=== PATIENT | male | born 2000 | race Caucasian/White ===

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

== ENCOUNTER 2021-08-08 19:22 | Emergency (ER) | payer OTHER, SELFPAY ==
--- NOTE | 2021-08-08 19:27 | ED.WOUNDLAC ---
HPI - Wound/Laceration General Chief Complaint: Wound/Laceration Stated Complaint: lac on head Time Seen by Provider: 08/08/21 19:27 Source: patient and RN notes reviewed History of Present Illness HPI narrative: Patient is a 20-year-old male who presents the urgent care with complaints of a laceration to the head. Patient states that he is helping his [id number] to rehab a house and hit his head on the corner of a ceiling fan. Patient states a fan was not moving and was actually a broken light fixture. Patient states he has had a slight headache since then. States that it started bleeding after the shower and he wanted to make sure it was not deep enough for sutures . Patient denies of any loss of consciousness or vision changes. No other acute complaints. No acute distress noted. Patient aware of the plan of care. Some parts of this dictation were generated by voice recognition software and may contain typographical and/or grammatical inaccuracies. Related Data Home Medications Medication Instructions Recorded Confirmed fluoxetine 10 mg PO DAILY 08/08/21 08/08/21 Allergies Allergy/AdvReac Type Severity Reaction Status Date / Time amoxicillin Allergy Intermediate Rash Verified 08/08/21 19:33 Penicillins Allergy Mild Rash Verified 08/08/21 19:33 STEROIDS Allergy Intermediate MIGRAINE Uncoded 08/08/21 19:33 HEADACHE, FACIAL AND EYE SWELLING POISON DAVID Allergy Mild RASH Uncoded 08/08/21 19:33 Review of Systems Review of Systems: CONSTITUTIONAL: Denies fever, chills, or sweats. EYES: Denies visual changes, redness, or discharge. ENT: Denies rhinorrhea, congestion, sore throat, or otalgia. CARDIOVASCULAR: Denies chest pain, palpitations, or edema. RESPIRATORY: Denies cough or dyspnea. GASTROINTESTINAL: Denies abdominal pain, nausea, vomiting, or diarrhea. GENITOURINARY: Denies dysuria or hematuria. SKIN: Reports of a laceration to the head MUSCULOSKELETAL: Denies back pain, joint pain, or myalgia. NEUROLOGIC: Denies headache, numbness, or weakness. All other systems reviewed are negative, except as documented in HPI. PMFSH Comments At the time of my signature, I reviewed and agree with the nursing past medical, surgical, social, and family history. There is no relevant family history pertinent to the patient complaint. Exam Narrative: GENERAL: This is a well-nourished, well-developed patient, in no apparent distress. HEAD: normocephalic, atraumatic. EYES: PERRL. Sclera clear/white. Vision is grossly intact. EARS: External ears normal NOSE: External nose normal with no obvious nasal discharge, nares without redness, no rhinorrhea. THROAT: Mucous membranes moist NECK: Neck supple CARDIOVASCULAR: Regular rate and rhythm without murmurs, gallops, or rubs. RESPIRATORY: Clear to auscultation. Breath sounds equal bilaterally. No wheezes, rales, or rhonchi. SKIN: 1.5 cm superficial linear laceration to the top left scalp. Warm, intact with no suspicious lesions or rash, good texture and turgor. NEURO: awake, alert, and oriented to person, place and time. There were no obvious focal neurologic abnormalities. EXTREMITIES: No clubbing, cyanosis, or edema. Course Vital Signs Vital signs: Vital Signs Temperature 99 F 08/08/21 19:29 Pulse Rate 81 08/08/21 19:29 Respiratory Rate 16 08/08/21 19:29 Blood Pressure 148/69 H 08/08/21 19:29 Pulse Oximetry 100 08/08/21 19:29 Temperature 99 F 08/08/21 19:29 Pulse Rate 81 08/08/21 19:29 Respiratory Rate 16 08/08/21 19:29 Blood Pressure 148/69 H 08/08/21 19:29 Pulse Oximetry 100 08/08/21 19:29 Reviewed-patient is informed that they may have pre-hypertension or hypertension based on a blood pressure reading in the department. I recommend the patient call the primary care provider listed on their discharge instructions or a physician of their choice this week to arrange follow-up for further evaluation of possible pre-hypert
[2021-08-08 19:29] VITALS: BP 148/69; PULSE 81; RESP 16; TEMP 37.2; O2SAT 100
== END 2021-08-08 19:37 | disposition home or self-care (01) ==
PROVIDERS: Emergency Provider Nurse Practitioner Family; PCP Physician Assistant
DX: S01.01XA Laceration without foreign body of scalp, initial encounter (principal); W22.8XXA Striking against or struck by other objects, initial encounter; F32.9 Major depressive disorder, single episode, unspecified
CPT/HCPCS: 99212; G0463

== ENCOUNTER 2022-04-04 18:30 | Emergency (ER) | payer BC, SELFPAY ==
--- NOTE | 2022-04-04 18:37 | ED.URI ---
HPI - URI/Sore Throat General Chief Complaint: Upper Respiratory Infection Stated Complaint: headache sore throat congestion Time Seen by Provider: 04/04/22 18:42 Source: patient Mode of arrival: ambulatory Limitations: no limitations History of Present Illness HPI Narrative: Rudy is a 21-year-old male patient presenting to the clinic today with complaints of headache, sore throat, and chest congestion x2 days. He denies any known exposure to anyone with COVID, flu, or strep. He reports that he does not want flu or COVID testing in the clinic today. He is agreeable to have a strep test completed. He denies any fever or chills. He denies any cough. Does have a runny nose. MD elicited complaint: sore throat, nasal congestion and other (Headache) Related Data Home Medications Medication Instructions Recorded Confirmed fluoxetine 10 mg PO DAILY 08/08/21 08/08/21 Allergies Allergy/AdvReac Type Severity Reaction Status Date / Time amoxicillin Allergy Intermediate Rash Verified 08/08/21 19:33 Penicillins Allergy Mild Rash Verified 08/08/21 19:33 STEROIDS Allergy Intermediate MIGRAINE Uncoded 08/08/21 19:33 HEADACHE, FACIAL AND EYE SWELLING POISON DAVID Allergy Mild RASH Uncoded 08/08/21 19:33 Review of Systems Review of Systems: Pertinent positives per HPI. Patient denies any fever, chills, rash, visual changes, dizziness, cough, shortness of breath, chest pain, palpitations, nausea, vomiting, diarrhea, constipation, abdominal pain, or any urinary issues. PMFSH Comments At the time of my signature, I reviewed and agree with the nursing past medical, surgical, social, and family history. There is no relevant family history pertinent to the patient complaint. Exam Narrative: General: Well-developed, well nourished, in no apparent distress Head: Normocephalic, atraumatic Eyes: Pupils equally round and reactive to light bilaterally, EOM intact, sclera and conjunctive clear, no discharge, lids normal Ears: TMs intact and dull, ear canals clear, no drainage, grossly hearing normal. Nose: Nares patent, clear nasal discharge, no inflammation, no sinus tenderness. Mouth: Oral pharynx without lesions or masses, good dentition, MMM. Postnasal drip Neck: Supple, trachea midline, no enlargement of anterior or posterior cervical nodes, no thyroid masses or goiter palpable. Cardio: Regular rate and rhythm, s1 and s2 normal, no murmur appreciated. Resp: Clear to auscultation bilaterally, no rhonchi, rales, wheezing or rubs Course Course Emergency Course: Portions of this record may have been created with voice recognition software. Level of Care: Express Care Visit Vital Signs Vital signs: Vital Signs Temperature 37.1 C 04/04/22 18:40 Pulse Rate 61 04/04/22 18:40 Respiratory Rate 20 04/04/22 18:40 Blood Pressure 114/62 04/04/22 18:40 Pulse Oximetry 100 04/04/22 18:40 Temperature 37.1 C 04/04/22 18:40 Pulse Rate 61 04/04/22 18:40 Respiratory Rate 20 04/04/22 18:40 Blood Pressure 114/62 04/04/22 18:40 Pulse Oximetry 100 04/04/22 18:40 Vital signs reviewed MDM - URI/Sore Throat MDM Narrative Medical decision making narrative: At the time of visit patient is resting comfortably on the exam table. Strep testing completed was negative in the clinic. Patient declined COVID testing and influenza testing at this time. I suspect that the patient has viral pharyngitis and we will send the strep screen for culture. Supportive measures were discussed with the patient he voiced understanding of discharge instructions and agrees to treatment plan. Differential Diagnosis Differential diagnosis: Likely upper respiratory infection, croup, otitis media, sinusitis, viral infection, bronchitis, influenza and pharyngitis Lab Data Labs: Strep Screen Presumptive Negative *(Reference Range: Negative)* Discharge Plan Discharge
[2022-04-04 18:40] VITALS: BP 114/62; PULSE 61; RESP 20; TEMP 37.1; O2SAT 100
== END 2022-04-04 19:00 | disposition home or self-care (01) ==
PROVIDERS: Emergency Provider Nurse Practitioner Family
DX: J02.9 Acute pharyngitis, unspecified (principal)
CPT/HCPCS: 87081; 87880; 99213; G0463

== ENCOUNTER 2023-02-18 13:48 | Emergency (ER) | payer SELFPAY ==
[2023-02-18 13:56] VITALS: BP 119/75; PULSE 83; RESP 14; TEMP 37.8; O2SAT 98
--- NOTE | 2023-02-18 14:17 | ED.URI ---
HPI - URI/Sore Throat General Chief Complaint: Upper Respiratory Infection Stated Complaint: cough / cold / fever Time Seen by Provider: 02/18/23 14:15 Source: patient, RN notes reviewed and old records reviewed Mode of arrival: ambulatory Limitations: no limitations History of Present Illness HPI Narrative: 22-year-old male accompanied by significant other presents with complaints of cough for 3 days history with fevers up [id number], complaints of some stuffy nose also sore throat. Patient reports he has not taken any medication for his symptoms. Patient reports past history of ear infections and has had his tonsils removed. Patient reports no known ill contacts. MD elicited complaint: cough and sore throat Pertinent past history: other (Ear infections, strep throat) Onset (ago): day(s) (3) Pain scale (0-10): 2 Treatments prior to arrival: none Related Data Allergies Allergy/AdvReac Type Severity Reaction Status Date / Time amoxicillin Allergy Intermediate Rash Verified 08/08/21 19:33 Penicillins Allergy Mild Rash Verified 08/08/21 19:33 STEROIDS Allergy Intermediate MIGRAINE Uncoded 08/08/21 19:33 HEADACHE, FACIAL AND EYE SWELLING POISON DAVID Allergy Mild RASH Uncoded 08/08/21 19:33 Review of Systems Review of Systems: CONSTITUTIONAL: Reports malaise, chills, sweats, or fever. EYES: Denies visual changes, redness, or discharge. ENT: Reports rhinorrhea, congestion,no sinus pain, no otalgia positive for sore throat. CARDIOVASCULAR: Denies chest pain, palpitations, or edema. RESPIRATORY: Reports cough.? Denies dyspnea. GASTROINTESTINAL: Denies abdominal pain, nausea, vomiting, diarrhea SKIN: Denies rash or itching. MUSCULOSKELETAL: Denies myalgia. NEUROLOGIC: Denies headache. All systems reviewed & are unremarkable except as noted in HPI and below PMFSH Past Medical History Medical History (Updated 02/20/23 @ 07:54 by Sasha Orellana NP) Anxiety and depression Eczema Fracture of right hand Surgical History Surgical History (Updated 02/20/23 @ 07:50 by Sasha Orellana NP) History of tonsillectomy and adenoidectomy Social History Social History (Updated 02/20/23 @ 07:50 by Sasha Orellana NP) Smoking status: Current every day smoker Tobacco type: e-cigarettes/vaping Alcohol intake: current Alcohol use details: social Substance use type: does not use Living arrangements: with family Gender identity (if verbalized by the patient): Male Comments At time of signature, agree with nursing past medical, surgical, social and family history. There is no relevant family history pertinent to the presenting complaint Exam Narrative: GENERAL: Well-appearing, well-nourished, and in no acute distress. HEAD: Normocephalic EYES: PERRLA, conjunctivae clear ENT: Nares clear, turbinates edematous and erythematous, clear discharge. Mucous membranes moist. TM pearly arreola with dull light reflex bilaterally; no tragal tenderness. Oropharynx erythematous without lesions. Tonsils not present and throat without exudate, no drooling, no hoarseness, no trismus, uvula midline.post nasal drainage. NECK: Supple. No lymphadenopathy CHEST: Clear to auscultation, breath sounds equal. No wheezing, rhonchi, rales, or stridor. No respiratory distress, speaks in full sentences.cough SAO2 98% on room air HEART: Regular rate and rhythm. No murmur heard. SKIN: Warm, dry, no rash. NEURO: Alert and oriented x3. PSYCH: Normal mood and affect Course Course Emergency Course: Patient is aware of diagnosis, understands and agrees to treatment plan.? Anticipatory guidance given.? Patient agrees to follow-up as directed and is aware of reasons to seek care at the emergency department. Portions of this record may have been created with voice recognition software Level of Care: Express Care Visit Vital Signs Vital signs: Vital Signs Temperature 37.8 C H 02/18/23 13:56 Pulse R
--- NOTE | 2023-02-18 14:31 | ED.URI ---
HPI - URI/Sore Throat General Chief Complaint: Upper Respiratory Infection Stated Complaint: cough / cold / fever Time Seen by Provider: 02/18/23 14:15 Source: patient, RN notes reviewed and old records reviewed Mode of arrival: ambulatory Limitations: no limitations History of Present Illness HPI Narrative: 3 day of cough 102 fever, history of ear infections no meds taken MD elicited complaint: fever, cough, rhinorrhea and nasal congestion Related Data Allergies Allergy/AdvReac Type Severity Reaction Status Date / Time amoxicillin Allergy Intermediate Rash Verified 08/08/21 19:33 Penicillins Allergy Mild Rash Verified 08/08/21 19:33 STEROIDS Allergy Intermediate MIGRAINE Uncoded 08/08/21 19:33 HEADACHE, FACIAL AND EYE SWELLING POISON DAVID Allergy Mild RASH Uncoded 08/08/21 19:33 Course Vital Signs Vital signs: Vital Signs Temperature 37.8 C H 02/18/23 13:56 Pulse Rate 83 02/18/23 13:56 Respiratory Rate 14 02/18/23 13:56 Blood Pressure 119/75 02/18/23 13:56 Pulse Oximetry 98 02/18/23 13:56 Oxygen Delivery Room Air 02/18/23 13:56 Temperature 37.8 C H 02/18/23 13:56 Pulse Rate 83 02/18/23 13:56 Respiratory Rate 14 02/18/23 13:56 Blood Pressure 119/75 02/18/23 13:56 Pulse Oximetry 98 02/18/23 13:56 Oxygen Delivery Room Air 02/18/23 13:56 Discharge Plan Discharge Follow-up/Referrals: Delroy Keyes MD [Primary Care Provider] -
== END 2023-02-18 14:45 | disposition home or self-care (01) ==
PROVIDERS: Emergency Provider Registered Nurse; PCP Emergency Medicine
DX: J06.9 Acute upper respiratory infection, unspecified (principal); R05.9 Cough, unspecified; F17.290 Nicotine dependence, other tobacco product, uncomplicated
CPT/HCPCS: 87081; 87880; 99213; G0463

== ENCOUNTER 2025-07-13 08:13 | Emergency (ER) | payer OTHER, SELFPAY ==
--- OUTSIDE RECORDS SUMMARY | 2025-07-13 08:16 | XMS_ITS | Clinical Summary ---
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 90 Capsule 1 07/26/2021 Active naproxen (NAPROSYN) 500 MG Tablet Take 1 Tablet by mouth 2 times daily as needed for Moderate or more severe pain. 20 Tablet 08/14/2024 Active Active Problems Problem Noted Date Diagnosed Date Depression 06/14/2021 Immunizations Immunization Administration Dates Next Due [id number] selena MCV4, Unspecif ied Formulation 10/20/2012 DTAP VACCINE 06/11/2006, 3,04/19/2002,01/11,2001 Hepatitis A Vaccine, Pediatric/adolescent, 2 Dose Schedule 06/11/2006,10/01/2005 Hepatitis B Vaccine, Pediatric/adolescent 07/20/2002,2001,2001 Hib Vaccine,unspecified Formulation 04/18,04/19/2002,01/11/2002,11/26 Inactivated Polio Vaccine 06/11/2006,,01/11/2002,11/26 Influenza Vaccine,unspecifie d Formulation 09/21/2004 MMR Vaccine 06/03/2007,10/29/2002 Meningococcal MCV4O 02/05/2018 Pneumococcal Vaccine Peds - 7 Valent 05/11/2003, 05/11/2003 TDAP Vaccine 11/07/2018(Deferred: - had as school requirement),10/20/2012 Varicella Vaccine Live 06/03/2007,05/11/2003 Family History Medical History Relation Name Comments No Known Problems Father No Known Problems Mother Relation Name Status Comments Father Alive Mother Alive Social History Tobacco Use Types Packs/Day Years Used Date Smoking Tobacco: Every Day Cigarettes 0.3 6.1 Started: 06/14/2019 Smokeless Tobacco: Never Tobacco Cessation:Ready to Q uit: No; Counseling Given: Yes Alcohol Use Standard Drinks/Week Comments Not Currently 0 (1 standard drink = 0.6 oz pur e alcohol) PHQ-2 Answer Date Recorded Total Score - Questions 1-9 0 07/2021 Sexually Active Control Partners Comments Yes Male Condom Female Sex and Gender Information Value Date Recorded Sex Assigned at Not on file Legal Sex Male 11:33 PM CDT Gender Identity Not on file Sexual Orientation Not on file Last Filed Vital Signs Vital Sign Reading Time Taken Comments Blood Pressure 148/87 08/14/2024 10:02 PM CDT Pulse 100 08/14/2024 10:02 PM CDT Temperature 37.4 C (99.4 F) 08/14/2024 7:54 PM CDT Respiratory Rate 18 08/14/2024 10:02 PM CDT Oxygen Saturation 99% 08/14/2024 10:02 PM CDT Inhaled Oxygen Concentration - - Weight 88.5 kg (195 lb) 08/14/2024 7:54 PM CDT Height 190.5 cm (6' 3) 08/14/2024 7:54 PM CDT Body Mass Index 24.37 08/14/2024 7:54 PM CDT Plan of Treatment Health Maintenance Due Date Last Done Comments Hepatitis C Virus (HCV) Screening 2001 Human Papillomavirus (HPV) Immunization (1 - Male 3-dose series) 2016 Meningococcal B Immunization (1 of 2 - Standard) 2017 Pneumococcal Immunization Combined (1 of 2 - PCV) 2020 05/11/2003, 05/11/2003 DTaP/Tdap/Td Immunization (7 - Td or Tdap) 10/20/2022 10/20/2012, 06/11/2006, 05/11/2003, Additional history exists SARS-COV-2 Immunization (2023- season) 2024 Influenza Immunization (#1) 2025 09/21/2004 Respiratory Syncytial Virus (RSV) Immunization (Adult) (1 - 1-dose 75+ series) 2076 Hepatitis B Immunization Completed 002, 2001, 2001 Hepatitis A Immunization Discontinued 06/11/2006, 09/17 Polio (IPV) Immunization Discontinued 006, 10/29/2002, 01/11/2002, Additional history exists Measles Mumps Rubella (MMR) Immunization Discontinued 06/03/2007, 10/29/2002 Varicella Immunization Discontinued 06/03/2007, 2002 Meningococcal Immunization (ACWY) Completed 02/05/2018, 10/20/2012 Rotavirus Immunization Aged Out No lo nger eligible based on patient's age to complete this topic Insurance [address] [address] [facility] [place] L [facility]
--- OUTSIDE RECORDS SUMMARY | 2025-07-13 08:16 | XMS_ITS | Clinical Summary ---
Author Organization [facility] Address [address] [place] [address] Care Team Providers Care Castables Worker Name Role Phone Fer Natalia GONZALES Primary Care Provider [phone] Allergies Active Allergy Reactions Criticality Noted Date Comments Cefdinir Unknown 07/30/2024 Penicillins Rash Medium 08/11/2015 Prednisone Headache,Other (See comments) Low 2018 migraines Medications azithromycin (ZITHROMAX) 250 mg tablet Take 2 tablets the first day, then 1 tablet daily for 4 days 6 tablet 4 Active Additional Information Patient not taking.Reported on 03/22/2025 Active Problems Problem Noted Date Diagnosed Date Depression 06/14/2021 Assessment & Plan (07/26/2024 5:14 PM CDT): Stable, well controlled Not currently on medication Generalized abdominal pain 10/06/2020 Assessment & Plan (07/26/2024 5:12 PM CDT): Couple weeks of intermittent pain when eating Labs ordered Discussed potential imaging or referral to GI as needed Resolved Problems Problem Noted Date Diagnosed Date Resolved Date Jaundice 07/26/2024 07/26/2024 Migraine 07/26/2024 07/26/2024 Hyperbilirubinemia 10/06/2020 Diarrhea of presumed infectious origin 10/06/2020 07/26/2024 Immunizations Immunization Administration Dates Next Due DTaP 06/11/2006, 3,04/19/2002,01/11/2002 ,2001 Hep A, Pediatric 06/11/2006,10/01/2005 Hep B, Adolescent or Pediatric 07/20/2002,2000,2001 HiB 05/11/2003,04/19/2002,01/11/2002 ,2001 IPV 06/11/2006,10/29/2002,01/11/2002 ,2001 Influenza, Unspecified 07/21/2024(Deferr ed: Patient Refused),08/17/2023(Deferred: Patient Refused),09/21/2004 MMR 06/03/2007,10/29/2002 Meningococcal Conjugate (Menveo) 02/05/2018 Meningococcal MCV4, Unspecified 10/20/2012 Pneumococcal Conjugate 7-Valent 05/11/2003 Tdap 10/20/2012 Varicella 06/03/2007,05/11/2003 Surgical History Surgery Date Site/Laterality Comments TONSILLECTOMY Tonsillectomy Medical History Medical History Date Comments Depression 06/14/2021 Migraine 07/26/2024 Social History Tobacco Use Types Packs/Day Years Used Date Smoking Tobacco: Former Cigarettes Smokeless Tobacco: Former Tobacco Cessation:Counseling Given: Not Answered Comments:vape Alcohol Use Standard Drinks/Week Comments Not Currently 0 (1 standard drink = 0.6 oz pur e alcohol) AUDIT-C Answer Date Recorded Q1: How often do you have a drink containing alc ohol? 2-3 times a week 07/26/2024 Q2: How many drinks containi ng alcohol do you have on a typical day when you are drinking? 3 or 4 07/26/2024 Q3: How often do you have si x or more drinks on one occasion? Less than monthly 07/26/2024 PHQ-2 Answer Date Recorded PHQ-2 Total Score (If total score is 3 or more points, staff should administer the PHQ-9) 0 07/26/2024 Personal Safety Answer Date Recorded Have you ever been in or are you currently in a harmful physical or emotional relationship or is someone making you feel afraid or unsafe? 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 Gender Identity Not on file Sexual Orientation Not on file Obstetrics History Last Filed Vital Signs Vital Sign Reading Time Taken Comments Blood Pressure 120/70 03/22/2025 11:10 AM CDT Pulse 84 03/22/2025 11:10 AM CDT Temperature 36.6 C (97.8 F) 03/22/2025 11:10 AM CDT Respiratory Rate 18 03/22/2025 11:10 AM CDT Oxygen Saturation 98% 03/22/2025 11:10 AM CDT Inhaled Oxygen Concentration - - Weight 86.2 kg (190 lb) 03/22/2025 11:10 AM CDT Height 190.5 cm (6' 3) 03/22/2025 11:10 AM CDT Body Mass Index 23.75 03/22/2025 11:10 AM CDT Plan of Treatment Health Maintenance Due Date Last Done Comments HPV Vaccines (1 - Male 3-dose series) 2016 Meningococcal B Vaccine (1 of 2 - Standard) 2017 Regular Well Visit/Exam 18-64 2019 DTaP/Tdap/Td Vaccine (7 - Td or Tdap) 10/20/2022 10/20/2012, 06/11/2006, 05/11/2003, Additional history exists Influenza Vaccine (#1) 2025 09/21/2004 Depression Screening 07/26/2025 07/26/2024 Hepatitis B Screening Completed 07/20/2002 , 2001, 2001 Pneumococcal vaccine <65 Aged Out 05/11/2003 No longer eligible based on patient's age to complete this topic Varicella Vaccines Completed 06/03/2007, 05/11/2003 Hepatitis C Screening Completed 10/06/2020, 020 Procedures Procedure Name Priority Date/Time Associated Diagnosis Comments HEPATITIS PANEL, ACUTE Routine 10/06/2020 6:41 AM EMBOSSING MACHINE TENDER from Last 3 Months or Most Recently Relevant to Health Maintenance Results * Hepatitis panel, acute (10/06/2020 6:41 AM EMBOSSING MACHINE TENDER) Hep A IgM Nonreactive Nonreactive ANKITA LORENZANA ([place]) Comment: Interpretive Data: If Hep A IgM Ab is reported as Equivocal, a new sample should be drawn in two weeks for testing. Current interpretive data was last revised on 20. Testing performed by: [facility], [address] [place] [address], [place]., [address] Hep B core IgM Nonreactive Nonreactive C LESTER LORENZANA ([place]) Comment: Interpretive Data If HepB Core IgM Ab is reported as Equivocal, a new sample should be drawn in two weeks for testing. Current interpretive data was last revised on 20. Testing performed by: [facility], [address] [place] [address]., [id number] Hep C Ab Nonreactive Nonreactive ANKITA LORENZANA ([place]) Comment: Interpretive Data Nonreactive: Antibodies to HCV not detected. Does NOT exclude the possibility of recent exposure to HCV. Equivocal: Equivocal for HCV antibodies. Supplemental molecular testing will be automatically performed to determine infection status in accordance with current CDC screening recommendations. Reactive: Positive for HCV antibodies. This may represent current or past HCV infection. Supplemental molecular testing will be automatically performed to determine current infection status in accordance with current CDC screening recommendations. Interpretive data was last revised on 2020. Testing performed by: [facility], [address] [place] [address]., [id number] HepBsAg Nonreactive Nonreactive ANKITA LORENZANA ([place]) Comment:Testing performed by : [facility], [address] [place] [address]., [id number] Blood specimen (specimen) 10/06/2020 6:41 AM EMBOSSING MACHINE TENDER 10/06/2020 12:22 PM EMBOSSING MACHINE TENDER Issac Altamirano MD LAB MICROBIOLOGY - GENERAL OR DERABLES Final Result ANKITA LORENZANA ([place]) 1 [facility] Department [place] [address] from Last 3 Months or Most Recently Relevant to Health Maintenance Insurance [facility] [address] [place] [address] ANTH ACCESS CHOICE Member Subscriber Plan / Payer (Ef fective 2024-Present) Name:Rudy Chow Relation to Subscriber:Self Name:Rudy Chow Payer ID:[id number] (NAIC) Type:[facility] Address: [address] [facility] [place] [address] WORKERS COMPENSATION GENERIC Advance Directives For more information, please contact: [phone] * Full Code (Latest Code Status on File) Date Activated Date Inactivated Comments 10/06/2020 3:04 AM 10/06/2020 6:57 PM * Full Code Date Activated Date Inactivated Comments 10/06/2020 1:52 AM 10/06/2020 3:04 AM Care Teams Castables Worker Relationship Specialty Start Date End Date Natalia Monroe NP [address] [facility] [address] PCP - General Family Medicine 07/26/24
[2025-07-13 08:20] VITALS: BP 131/73; PULSE 65; RESP 16; TEMP 36.8; O2SAT 98
--- NOTE | 2025-07-13 08:47 | ED_ITS ---
HPI - URI/Sore Throat General Chief Complaint: Upper Respiratory Infection Stated Complaint: congestion/drainage Time Seen by Provider: 07/13/25 08:47 Source: patient Mode of arrival: ambulatory Limitations: no limitations History of Present Illness HPI Narrative: 24-year-old male presents with complaint runny nose, congestion, sore throat and cough starting yesterday. Afebrile. Not taking any [id number] medications to treat symptoms. Denies nausea vomiting diarrhea. All Systems reviewed and negative except as noted. Related Data Allergies Allergy/AdvReac Type Severity Reaction Status Date / Time amoxicillin Allergy Intermediate Rash Verified 08/08/21 19:33 Penicillins Allergy Mild Rash Verified 08/08/21 19:33 STEROIDS Allergy Intermediate MIGRAINE Uncoded 08/08/21 19:33 HEADACHE, FACIAL AND EYE SWELLING POISON DAVID Allergy Mild RASH Uncoded 08/08/21 19:33 [facility] Past Medical History Medical History (Updated 07/13/25 @ 08:49 by Katherine Townsend NP) Eczema Fracture of right hand Anxiety and depression Surgical History Surgical History (Updated 02/20/23 @ 07:50 by Sasha Orellana NP) History of tonsillectomy and adenoidectomy Social History Social History (Updated 02/20/23 @ 07:50 by Sasha Orellana NP) Smoking status: Current every day smoker Tobacco type: e-cigarettes/vaping Alcohol intake: current Alcohol use details: social Substance use type: does not use Living arrangements: with family Gender identity (if verbalized by the patient): Male Comments At time of signature, agree with nursing past medical, surgical, social and family history. There is no relevant family history pertinent to the presenting complaint. Exam Narrative: GENERAL: This is a well-nourished, well-developed patient, Ill-appearing but no acute distress HEAD: normocephalic, atraumatic. EYES: PERRL. Sclera clear/white. Vision is grossly intact. EARS: External ears normal, auditory canals clear and without drainage, TMs normal without perforation. Hearing grossly intact. NOSE: External nose normal with Mild congestion, clear nasal drainage. THROAT: Mucous membranes moist, Erythematous with mild swelling. No exudates. NECK: Neck supple, non-tender without lymphadenopathy, masses or thyromegaly. CARDIOVASCULAR: Regular rate and rhythm without murmurs, gallops, or rubs. RESPIRATORY: Clear to auscultation. Breath sounds equal bilaterally. No wheezes, rales, or rhonchi. SKIN: warm, Dry, intact with no suspicious lesions or rash, good texture and turgor. NEURO: awake, alert, and oriented to person, place and time. There were no obvious focal neurologic abnormalities. EXTREMITIES: No joint tenderness, effusion, or edema noted. Course Course Level of Care: Express Care Visit Vital Signs Vital signs: Vital Signs Temperature 36.8 C 07/13/25 08:20 Pulse Rate 65 07/13/25 08:20 Respiratory Rate 16 07/13/25 08:20 Blood Pressure 131/73 07/13/25 08:20 Pulse Oximetry 98 07/13/25 08:20 Oxygen Delivery Room Air 07/13/25 08:20 Temperature 36.8 C 07/13/25 08:20 Pulse Rate 65 07/13/25 08:20 Respiratory Rate 16 07/13/25 08:20 Blood Pressure 131/73 07/13/25 08:20 Pulse Oximetry 98 07/13/25 08:20 Oxygen Delivery Room Air 07/13/25 08:20 reviewed MDM - URI/Sore Throat MDM Narrative Medical decision making narrative: negative COVID, influenza and strep. Strep culture pending. Recommend over -the-counter medications to treat viral symptoms. Lungs clear to auscultation. Patient is alert, nontoxic. Differential Diagnosis Differential diagnosis: Likely upper respiratory infection, sinusitis, viral infection, influenza and pharyngitis Lab Data Labs: Lab Results 07/13/25 Range/Units 08:47 POC Influenza A Ag Negative (Negative) POC Influenza B Ag Negative (Negative) POC SARS CoV-2 Ag Negative (Negative) POC Grp A Strep Screen Negative (Negative) Discharge Plan Discharge Clinical Impression: Acute viral sinusitis Patient Disposition: Home Condition: Stable Instructions: Sinusitis (ED) Additional Instructions: your COVID, influenza and strep test were negative today. Your symptoms are viral and may last 10-14 days. Purchase an sirh-scz-cbzqmbf nasal spray to treat her symptoms such as Flonase or Nasacort. Take as directed on packaging. Purchase an [id number]-[id number] decongestant such as pseudoephedrine. Take as directed on packaging. This medication is found by the pharmacist. Drink at least 64 oz of water a day. See your doctor symptoms are not improving. Patient Language: Sinhala Follow-up/Referrals: UNKNOWN,DOCTOR [Primary Care Provider] Stand Alone Forms: Work/School Release IP Time of Disposition: 08:49
[2025-07-13 08:51] LABS: EDCOVIDSCREEN Negative (Negative); EDINFLUASCREEN Negative (Negative); EDINFLUBSCREEN Negative (Negative); EDSTREPNEGPOS1 Negative (Negative)
== END 2025-07-13 08:55 | disposition home or self-care (01) ==
PROVIDERS: Emergency Provider Nurse Practitioner Family
DX: J01.90 Acute sinusitis, unspecified (principal); B97.89 Other viral agents as the cause of diseases classified elsewhere; F17.290 Nicotine dependence, other tobacco product, uncomplicated; Z20.822 Contact with and (suspected) exposure to COVID-19
CPT/HCPCS: 87081; 87426; 87804; 87880; 99213; G0463